=== PATIENT | male | born 1985 | race Caucasian/White ===

== ENCOUNTER → 2016-10-06 | Outpatient (CLI) | payer SELFPAY ==
[2013-09-11 16:00] VITALS: BP 116/71
--- NOTE | 2016-10-06 13:18 | RAD ---
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 No acute fracture or dislocation. The soft tissues are unremarkable. No retained radiopaque foreign body identified. IMPRESSION: 1. No acute osseous abnormality. Reported By:
== END ==
LOC: RAD 12:26
PROVIDERS: ATTEND Specialist
DX: M79.642 Pain in left hand (principal)
CPT/HCPCS: 73130

== ENCOUNTER 2016-10-07 13:06 | Day surgery (SDC) | payer SELFPAY ==
[~2016-10-07 13:06] MED LIST: DIPRIVAN VIAL ONE; VERSED ONE; ZOFRAN INJ 4 MG VIAL ONE
[2016-10-07] MEDS ORDERED: LR 1000 ML IV 1,000 ML IV ONE (13:20)
[2016-10-07 13:38] LABS: BASOPHILS # (AUTO) 0.1 X10^3/uL (0.0-0.1); BASOPHILS % (AUTO) 0.9 % (0.2-1.0); EOSINOPHILS # (AUTO) 0.1 x10^3/uL (0.0-0.2); EOSINOPHILS % (AUTO) 1.1 % (0.9-2.9); HEMATOCRIT 46.5 % (42.0-54.0); HEMOGLOBIN 16.4 g/dL (13.5-18.0); LYMPHOCYTES # (AUTO) 2.4 X10^3/uL (1.3-2.9); LYMPHOCYTES % (AUTO) 27.8 % (21.0-51.0); MEAN CORPUSCULAR HEMOGLOBIN 31.3 pg (27.0-34.0); MEAN CORPUSCULAR HGB CONC 35.2 g/dL (33.0-35.0); MEAN CORPUSCULAR VOLUME 89.1 fL (80.0-100.0); MEAN PLATELET VOLUME 7.3 fL (7.4-11.0); MONOCYTES # (AUTO) 0.5 x10^3/uL (0.3-0.8); MONOCYTES % (AUTO) 5.6 % (0.0-13.0); NEUTROPHILS # (AUTO) 5.6 x10^3/uL (2.2-4.8); NEUTROPHILS % (AUTO) 64.6 % (42.0-75.0); PLATELET COUNT 240 X10^3/uL (150.0-450.0); RED BLOOD COUNT 5.22 X10^6/uL (4.7-6.0); RED CELL DISTRIBUTION WIDTH 12.5 % (11.6-16.5); WHITE BLOOD COUNT 8.7 X10^3/uL (3.6-10.0)
[2016-10-07] MEDS ORDERED: MARCAINE 0.25% INJ ONE (15:29)
[2016-10-07] MEDS ORDERED: BACTROBAN OINT ONE (15:29)
[2016-10-07] MEDS ORDERED: REGLAN INJ 10 MG VIAL ONE (15:37)
[2016-10-07] MEDS: ANCEF VIAL 1 GM ONE ×2 (15:55→16:30)
[2016-10-07] MEDS: NS 50 ML IV + SPIKE MINIBAG* 50 ML IV ONE ×2 (15:56→16:30)
[2016-10-07] MEDS ORDERED: NAROPIN 0.75% ONE (16:09)
[2016-10-07] MEDS ORDERED: METHYLENE BLUE 1% INJ ONE (16:58)
[2016-10-07] MEDS ORDERED: NS IRRIGATION 1000 ML 1,000 ML with BACITRACIN VIAL 50,000 UNT IR ONE ×2 (16:58)
[2016-10-07] MEDS ORDERED: NS IRRIGATION 1000 ML 1,000 ML IR ONE ×2 (17:28)
[2016-10-07] MEDS ORDERED: ADACEL TDaP IM ONE ×2 (17:34→18:08)
[2016-10-07] MEDS ORDERED: HYDROGEN PEROXIDE 3% ONE (17:51)
[2016-10-07] MEDS ORDERED: ZOFRAN INJ 4 MG VIAL IVP PRN (18:19)
[2016-10-07] MEDS ORDERED: PERCOCET TAB 5/325 MG PO PRN (18:19)
[2016-10-07] MEDS ORDERED: CIPRO IV 400 MG PREMIX* 400 MG/200 ML IV.SOLN. IV ONE (18:27)
[2016-10-07 19:19] VITALS: BP 131/85
== END 2016-10-07 19:20 | disposition home or self-care (01) | DRG 506 ==
LOC: SURG1 13:06
PROVIDERS: ATTEND Orthopaedic Surgery
PROC: 0LQ80ZZ Repair Left Hand Tendon, Open Approach (ICD-10-PCS; principal; 2016-10-07 16:30)
PROC: 0JDK0ZZ Extraction of Left Hand Subcutaneous Tissue and Fascia, Open Approach (ICD-10-PCS; principal; 2016-10-07 16:30)
DX: M00.842 Arthritis due to other bacteria, left hand (principal); B96.5 Pseudomonas (aeruginosa) (mallei) (pseudomallei) as the cause of diseases classified elsewhere; S69.82XA Other specified injuries of left wrist, hand and finger(s), initial encounter; S66.395A Other injury of extensor muscle, fascia and tendon of left ring finger at wrist and hand level, initial encounter; X58.XXXA Exposure to other specified factors, initial encounter
CPT/HCPCS: 36415; 85025; 87070; 87075; 87077; 87186; 87205; A4222; A9535; S0020; J0690; J0744; J2250; J2405; J2765; J3490; J7120